=== PATIENT | male | born 1940 | race Caucasian/White ===

== ENCOUNTER → 2017-07-06 | Outpatient (CLI) | payer OTHER ==
[~2017-07-06] MED LIST: CIPR500T4 PO; DILA2TAB4 PO; IBUP600 PO; LORC10TA PO; METR500T10 PO; MULTCAP14 PO; PROM25SU8 PO; TAMS0.4C67 PO; ZOLP10TA3 PO
--- NOTE | 2017-07-12 10:10 | RSPPFT ---
DATE OF PROCEDURE: 07/06/17 COMMENTS: Spirometry demonstrates an FEV1 of 3.5 at 96% of predicted, FVC of 4.5 at 97%, FEV1/FVC ratio 78%. Post-bronchodilator study demonstrated no significant change. Lung volumes demonstrated a borderline low TLC suggesting restrictive disease. Diffusion capacity is moderately reduced. Flow volume loops indicate a restrictive pattern. IMPRESSION: 1. No significant obstructive disease. 2. Mild restrictive disease. 3. No significant change following use of bronchodilator. 4. Moderate loss in diffusion capacity.
== END ==
LOC: HRSP 09:40
PROVIDERS: ATTEND Internal Medicine
DX: R06.02 Shortness of breath (principal)
CPT/HCPCS: 94060; 94726; 94729

== ENCOUNTER 2018-01-13 11:47 | Inpatient (IN) | payer OTHER, MEDICARE ==
[2018-01-13] MEDS ORDERED: LACTATED RINGER'S 1000 ML INJ 2,000 ML IV (12:00)
[2018-01-13] MEDS ORDERED: ONDANSETRON HCL 4 MG/2 ML VIAL IV (12:00)
[2018-01-13] MEDS ORDERED: DEXAMETHASONE SOD PHOS 4 MG/ML VIAL IV (12:00)
[2018-01-13] MEDS ORDERED: IOHEXOL 300 MG/ML 100 ML BTL (for Rad CT) IVCONTRAST (12:00)
[2018-01-13] MEDS ORDERED: NEOSTIGMINE 5 MG/5 ML SYRINGE IV PUSH (12:00)
[2018-01-13] MEDS ORDERED: ROCURONIUM INJ 50 MG/5 ML SYRINGE IV PUSH (12:00)
[2018-01-13] MEDS ORDERED: METOPROLOL TARTRATE 5 MG/5 ML VIAL IV (12:00)
[2018-01-13] MEDS ORDERED: LIDOCAINE HCL 1% PF 5 ML SYRINGE OTHER (12:00)
[2018-01-13] MEDS ORDERED: GLYCOPYRROLATE 1 MG/5 ML SYRINGE IV PUSH (12:00)
[2018-01-13] MEDS ORDERED: PHENYLEPH/NS 1000 MCG/10 ML SYR IV (12:00)
[2018-01-13] MEDS ORDERED: ePHEDrine/NS 25 MG/5 ML SYRINGE IV (12:00)
[2018-01-13] MEDS ORDERED: SODIUM CHLORID 0.9% 500 ML INJ 500 ML IV (12:00)
[2018-01-13] MEDS ORDERED: PROPOFOL 200 MG/20 ML AMP IV (12:00)
[2018-01-13] MEDS ORDERED: SODIUM CHLORID 0.9% 500 ML IV (12:30)
[2018-01-13] MEDS ORDERED: METOPROLOL TARTRATE 25 MG TAB PO (12:30)
[2018-01-13] MEDS: POVIDONE IODINE 5% (ANTISEPSIS KIT) 4 APPLICATIONS EACH NARE (13:00)
[2018-01-13] MEDS: LACTATED RINGER'S 1000 ML IV (13:00)
[2018-01-13] MEDS: CHLORHEXIDINE GLUCONATE 2 % 1 PACK (2 CLOTHS) TOPICAL (13:00)
[2018-01-13 13:07] LABS: AUTOMATED NEUTROPHIL # 4.6 TH/MM3 (1.8-7.7); BASOPHIL # 0.1 TH/MM3 (0-0.2); BASOPHIL % 0.7 % (0.0-2.0); EOSINOPHIL # 0.2 TH/MM3 (0-0.4); EOSINOPHIL % 3.1 % (0.0-4.0); HEMATOCRIT 43.7 % (39.0-51.0); HEMO FLAGS DIFF FINAL; HEMOGLOBIN 14.6 GM/DL (13.0-17.0); LYMPH % 27.5 % (9.0-44.0); LYMPHOCYTE # 2.1 TH/MM3 (1.0-4.8); MEAN CELL VOLUME 89.5 FL (80.0-100.0); MEAN CORPUSCULAR HEMOGLOBIN 29.8 PG (27.0-34.0); MEAN CORPUSCULAR HGB CONC 33.3 % (32.0-36.0); MEAN PLATELET VOLUME 8.1 FL (7.0-11.0); MONOCYTE # 0.6 TH/MM3 (0-0.9); NEUT % 60.7 % (16.0-70.0); PLATELET COUNT 241 TH/MM3 (150-450); RED BLOOD COUNT 4.89 MIL/MM3 (4.50-5.90); RED CELL DISTRIBUTION WIDTH 13.2 % (11.6-17.2); WHITE BLOOD COUNT 7.6 TH/MM3 (4.0-11.0)
[2018-01-13 13:19] LABS: APTT (PATIENT) 26.4 SEC (24.3-30.1)
[2018-01-13 13:30] LABS: ALBUMIN 3.9 GM/DL (3.4-5.0); ANION GAP 8 MEQ/L (5-15); AST (GOT) 17 U/L (15-37); BICARBONATE 27.3 MEQ/L (21.0-32.0); BLOOD UREA NITROGEN 19 MG/DL (7-18); CALCIUM 8.5 MG/DL (8.5-10.1); CHLORIDE 108 MEQ/L (98-107); CREATININE 1.45 MG/DL (0.60-1.30); GLOMERULAR FILTRATION RATE 47 ML/MIN (>89); GLUCOSE,RANDOM 97 MG/DL (74-106); POTASSIUM 4.3 MEQ/L (3.5-5.1); SODIUM (NA) 143 MEQ/L (136-145)
[2018-01-13 13:32] LABS: ALKALINE PHOSPHATASE 75 U/L (45-117); ALT (GPT) 16 U/L (12-78); TOTAL BILIRUBIN ADULT 0.4 MG/DL (0.2-1.0); TOTAL PROTEIN 7.2 GM/DL (6.4-8.2)
[2018-01-13] MEDS ORDERED: BUPIVACAINE HCL PF 0.5% 30 ML VIAL (13:58)
[2018-01-13] MEDS: ceFAZolin 1,000 MG/NS 100 ML IV (14:45)
[2018-01-13] MEDS: BUPIVACAINE/EPINEPHRINE 0.5% PF 30 ML VIAL (15:40)
[2018-01-13] MEDS: HEPARIN SODIUM - IV 10,000 UNITS/10 ML VIAL (15:40)
[2018-01-13] MEDS: HEPARIN SODIUM - SQ 10,000 UNITS/ML VIAL (15:40)
[2018-01-13] MEDS ORDERED: DO NOT ADM ANY ANTICOAGULANT DRUGS (17:51)
[2018-01-13] MEDS: LACTATED RINGER'S 1000 ML INJ 1,000 ML IV (18:00)
[2018-01-13] MEDS: MEPERIDINE HCL 25 MG/ML VIAL (18:03)
[2018-01-13] MEDS ORDERED: SODIUM CHLORIDE 0.9% FLUSH 10 ML FLUSH IV FLUSH ×2 (18:45)
[2018-01-13] MEDS ORDERED: ONDANSETRON ODT 4 MG TAB PO (18:45)
[2018-01-13] MEDS ORDERED: MORPHINE SULFATE 4 MG/ML INJ IV PUSH (18:45)
[2018-01-13] MEDS ORDERED: ZOLPIDEM TARTRATE 10 MG TAB PO (18:45)
[2018-01-13] MEDS ORDERED: METOPROLOL TARTRATE 5 MG/5 ML VIAL IV PUSH (18:45)
[2018-01-13] MEDS: [UNRECOGNIZED DRUG - OTHER] PO (21:00)
[2018-01-13] MEDS: carBAMazepine 200 MG TAB PO (21:00)
[2018-01-13] MEDS: ATORVASTATIN 20 MG TAB PO (21:00)
[2018-01-14] MEDS: MELOXICAM 15 MG TAB PO (08:35)
[2018-01-14] MEDS: carBAMazepine 200 MG TAB PO (08:35)
[2018-01-14] MEDS: [UNRECOGNIZED DRUG - OTHER] PO (08:35)
[2018-01-14] MEDS: TAMSULOSIN HCL 0.4 MG CAP PO (08:35)
[2018-01-14] MEDS: ALLOPURINOL 300 MG TAB PO (08:36)
[2018-01-14] MEDS: ASPIRIN 81 MG CHEW TAB PO (09:08)
== END 2018-01-14 18:34 | disposition home or self-care (01) | DRG 269 ==
LOC: HSDI 11:47 → HCIS 18:40
PROC: 04V03DZ Restriction of Abdominal Aorta with Intraluminal Device, Percutaneous Approach (ICD-10-PCS; principal; 2018-01-13 14:49)
DX: I71.4 Abdominal aortic aneurysm, without rupture (principal); I72.3 Aneurysm of iliac artery; J44.9 Chronic obstructive pulmonary disease, unspecified; E78.5 Hyperlipidemia, unspecified; G50.0 Trigeminal neuralgia; N18.3 Chronic kidney disease, stage 3 (moderate); Z87.891 Personal history of nicotine dependence
CPT/HCPCS: 75630; 80053; 85025; 85610; 85730; 86850; 86900; 86901; 86920